=== PATIENT | female | born 1985 | race African-American/Black ===

== ENCOUNTER 2021-09-04 18:30 | Emergency (ER) | payer OTHER ==
[2021-09-04] MEDS ORDERED: Ondansetron 4 MG/2 ML SDV IVPUSH ONE (20:50)
[2021-09-04] MEDS ORDERED: Sodium Chloride 0.9% 1,000 ML IV ONE (20:51)
[2021-09-04 21:39] LABS: CARBON DIOXIDE,CO2 22.7 mmol/L (21.0-32.0); POTASSIUM,K 3.7 mmol/L (3.5-5.1)
== END 2021-09-04 22:25 | disposition home or self-care (01) ==
LOC: MW.ED 18:30
DX: O21.0 Mild hyperemesis gravidarum (principal); Z3A.01 Less than 8 weeks gestation of pregnancy
CPT/HCPCS: 36415; 80053; 81001; 81025; 83690; 85025; 87086; 96361; 96374; 99284; J2405; J7030; 99283

== ENCOUNTER 2022-04-27 06:43 | Inpatient (IN) | payer OTHER ==
[2022-04-27] MEDS ORDERED: Terbutaline 1 MG/ML SDV SUBCUT PRN (07:03)
[2022-04-27] MEDS ORDERED: Misoprostol 200 MCG Tab PO PRN (07:07)
[2022-04-27] MEDS ORDERED: Ampicillin 2 GM in Sodium Chloride 0.9% 100 ML IV ONE (07:07)
[2022-04-27] MEDS ORDERED: Ondansetron 4 MG/2 ML SDV IVPUSH PRN (07:07)
[2022-04-27] MEDS ORDERED: Butorphanol 1 MG/ML SDV IVPUSH PRN (07:07)
[2022-04-27] MEDS ORDERED: Sodium Chloride 0.9% 20 ML SDV IV PRN (07:07)
[2022-04-27] MEDS ORDERED: Tranexamic Acid 1,000 MG in Sodium Chloride 0.9% 100 ML IV PRN (07:07)
[2022-04-27] MEDS ORDERED: Lidocaine 1% 50 ML MDV INJECT PRN (07:07)
[2022-04-27] MEDS ORDERED: Sodium Chloride 0.9% 10 ML Syringe FLUSH PRN (07:07)
[2022-04-27] MEDS ORDERED: Sodium Chloride 0.9% 2.5 ML Syringe FLUSH PRN (07:07)
[2022-04-27] MEDS ORDERED: Carboprost Tromethamine 250 MCG/1 ML Amp IM PRN (07:07)
[2022-04-27] MEDS ORDERED: Methylergonovine 0.2 MG/1 ML Amp IM PRN (07:07)
[2022-04-27] MEDS ORDERED: Water For Irrigation,Sterile 1,000 ML Container IRR PRN (07:07)
[2022-04-27] MEDS ORDERED: Oxytocin/0.9 % Sodium Chloride 30 UNIT/500 ML BAG IV SCH ×2 (07:15)
[2022-04-27] MEDS: Lactated Ringers 1,000 ML IV SCH ×3 (08:08→18:11)
[2022-04-27] MEDS: Ampicillin 1 GM in Sodium Chloride 0.9% 50 ML IV SCH ×3 (11:35→19:34)
[2022-04-27] MEDS ORDERED: Ropivacaine/PF 400 MG/200 ML PCA ONE (18:04)
[2022-04-27] MEDS ORDERED: Phenylephrine HCl 0.5 MG/5 ML AMP IVPUSH PRN (18:17)
[2022-04-27] MEDS ORDERED: ePHEDrine 50 MG/ML SDV IVPUSH PRN (18:17)
[2022-04-27] MEDS ORDERED: Ropivacaine HCl/PF 400 MG in Premix Bag 1 BAG EPIDUR SCH (18:30)
[2022-04-27] MEDS ORDERED: oxyCODONE 5 MG Tab PO PRN (20:01)
[2022-04-27] MEDS ORDERED: Witch Hazel Medicated Pads 40/Jar TOP PRN (20:01)
[2022-04-27] MEDS ORDERED: Lanolin 100% Cream 7 GM Tube TOP PRN (20:01)
[2022-04-27] MEDS ORDERED: Ibuprofen 400 MG Tab PO PRN (20:01)
[2022-04-27] MEDS ORDERED: Bisacodyl 10 MG Supp RECTAL PRN (20:01)
[2022-04-27] MEDS ORDERED: Acetaminophen 500 MG Tab PO PRN (20:01)
[2022-04-27] MEDS ORDERED: Benzocaine/Menthol 20%-0.5% Spray 78 GM Cannister TOP PRN (20:01)
[2022-04-27] MEDS ORDERED: Docusate Sodium 100 MG Cap PO PRN (20:01)
[2022-04-28] MEDS: Acetaminophen 500 MG Tab PO PRN ×4 (00:16→20:16)
[2022-04-28] MEDS: Ibuprofen 800 MG Tab PO PRN ×4 (00:16→23:34)
[2022-04-29] MEDS: Acetaminophen 500 MG Tab PO PRN (03:37)
[2022-04-29] MEDS: Ibuprofen 800 MG Tab PO PRN (07:36)
== END 2022-04-29 14:30 | disposition home or self-care (01) | DRG 806 ==
LOC: MW.OBCHECK 06:43 → MW.OB 06:44 → MW.OBCHECK 07:04 → MW.OB 07:05 → OBSVTOIN 19:48 → MW.OB 04-28 00:40
PROVIDERS: ADMIT Obstetrics & Gynecology; ATTEND Obstetrics & Gynecology
PROC: 10E0XZZ Delivery of Products of Conception, External Approach (ICD-10-PCS; principal; 2022-04-27)
PROC: 10907ZC Drainage of Amniotic Fluid, Therapeutic from Products of Conception, Via Natural or Artificial Opening (ICD-10-PCS; 2022-04-27)
PROC: 3E0R3BZ Introduction of Anesthetic Agent into Spinal Canal, Percutaneous Approach (ICD-10-PCS; 2022-04-27)
PROC: 00HU33Z Insertion of Infusion Device into Spinal Canal, Percutaneous Approach (ICD-10-PCS; 2022-04-27)
PROC: 3E0P7VZ Introduction of Hormone into Female Reproductive, Via Natural or Artificial Opening (ICD-10-PCS; 2022-04-27)
PROC: 3E033VJ Introduction of Other Hormone into Peripheral Vein, Percutaneous Approach (ICD-10-PCS; 2022-04-27)
DX: O99.824 Streptococcus B carrier state complicating childbirth (principal); O98.32 Other infections with a predominantly sexual mode of transmission complicating childbirth; Z37.0 Single live birth; Z20.822 Contact with and (suspected) exposure to COVID-19; O48.0 Post-term pregnancy; A63.0 Anogenital (venereal) warts; O69.81X0 Labor and delivery complicated by cord around neck, without compression, not applicable or unspecified; Z3A.40 40 weeks gestation of pregnancy
CPT/HCPCS: 01967; 36415; 51702; 59025; 59409; 82803; 85014; 85018; 85027; 86592; 86850; 86900; 86901; A9270-GY; J0290; J2590; J2795; J7050; J7120; U0002